=== PATIENT | male | born 1965 | race Caucasian/White ===

== ENCOUNTER → 2017-05-22 | Outpatient (CLI) | payer OTHER ==
[2017-05-22 15:43] LABS: Blood Urea Nitrogen 17 mg/dL (9-20)
== END | disposition home or self-care (01) ==
LOC: LABWHC1 15:15
PROVIDERS: ATTEND Nurse Practitioner Acute Care
DX: Z09 Encounter for follow-up examination after completed treatment for conditions other than malignant neoplasm (principal); Z85.110 Personal history of malignant carcinoid tumor of bronchus and lung
CPT/HCPCS: 36415; 82565; 84520

== ENCOUNTER → 2017-05-23 | Outpatient (CLI) | payer OTHER ==
--- NOTE | 2017-05-23 15:29 | CT ---
EXAMINATION TYPE: CT chest w con DATE OF EXAM: 05/23/2017 COMPARISON: 12/18/2015 HISTORY: History of testicular cancer. Neoplasm of lung. CT DLP: 765 mGycm. Automated Exposure Control for Dose Reduction was Utilized. TECHNIQUE: CT scan of the thorax is performed following with IV Contrast, patient injected with 100 mL of Omnipaque 300. FINDINGS: LUNGS: There is a 2 mm pulmonary nodule, solid in appearance, on series 4 image 46 within the posteri or basilar segment of the right lower lobe. Retrospectively this is stable from the prior exam of 11/27. The lungs are grossly clear, there is no concerning parenchymal mass or nodule identified. There is no pleural effusion or pneumothorax seen. The tracheobronchial tree is patent. MEDIASTINUM: There are no greater than 1 cm hilar or mediastinal lymph nodes. No pericardial effusi on is seen. OTHER: Hepatic parenchyma is diffusely hypoattenuated in comparison to that of the spleen, most commo nly seen in hepatic steatosis. This finding limits evaluation for hepatic masses. No gross evidence o f hepatic mass is seen. No intrahepatic biliary ductal dilatation. No cholelithiasis. Moderate degene rative changes of the thoracic spine are noted. There is a retrospectively stable 2.2 cm lytic sterna l lesion within the sternal body approximately. IMPRESSION: 1. Solitary right lower lobe solid and 2 mm pulmonary nodule retrospectively stable back to 2016. CT follow-up is recommended in 12 months to determine long-term stability. If this is unchanged at that time the nodule can be considered benign. 2. No evidence of intrathoracic adenopathy. 3. Nonspecific stable sternal lytic lesion unchanged from 2016. Continued surveillance is recommended . 4. Hepatic steatosis.
== END | disposition home or self-care (01) ==
LOC: RADCTMAIN 14:12
PROVIDERS: ATTEND Family Medicine
DX: Z08 Encounter for follow-up examination after completed treatment for malignant neoplasm (principal); R91.8 Other nonspecific abnormal finding of lung field; K76.0 Fatty (change of) liver, not elsewhere classified; Z85.110 Personal history of malignant carcinoid tumor of bronchus and lung
CPT/HCPCS: 71260; Q9967

== ENCOUNTER 2017-11-08 12:09 | Emergency (ER) | payer OTHER ==
--- NOTE | 2017-11-08 12:17 | ED ---
ENT HPI - General Stated complaint: FB Lt ear Time Seen by Provider: 11/08/17 12:15 Source: patient, RN notes reviewed Mode of arrival: ambulatory Limitations: no limitations - History of Present Illness Initial comments: This a 52-year-old male presents emergency Department chief complaint of left ear problems. Patient states that he normally has eczema of his ear and some cream in it. He states that he feels that something else may be wrong. He states that he used some chomping or moving his ear is concerned about possible. patient denies any bleeding, fever, chills or any drainage. Patient denies any URI symptoms. - Related Data Previous Rx's Medication Instructions Recorded Cephalexin [Keflex] 500 mg PO Q6HR #40 cap 11/08/17 Mometasone Furoate [Elocon] 1 applic TP BID #45 cream..g. 11/08/17 Allergies Allergy/AdvReac Type Severity Reaction Status Date / Time Penicillins Allergy Rash/Hives Verified 11/08/17 12:18 Review of Systems ROS Statement: Those systems with pertinent positive or pertinent negative responses have been documented in the HPI. ROS Other: All systems not noted in ROS Statement are negative. General Exam General appearance: alert, in no apparent distress Head exam: Present: atraumatic, normocephalic, normal inspection Eye exam: Present: normal appearance, PERRL, EOMI. Absent: scleral icterus, conjunctival injection, periorbital swelling ENT exam: Present: normal oropharynx, mucous membranes moist, TM's normal bilaterally. Absent: normal exam, normal external ear exam (There is an abscess with noted pustule on his left tragus) Neck exam: Present: normal inspection, full ROM. Absent: tenderness, meningismus, lymphadenopathy Respiratory exam: Present: normal lung sounds bilaterally. Absent: respiratory distress, wheezes, rales, rhonchi, stridor Cardiovascular Exam: Present: regular rate, normal rhythm, normal heart sounds. Absent: systolic murmur, diastolic murmur, rubs, gallop, clicks Neurological exam: Present: alert Skin exam: Present: warm, dry Course Vital Signs 11/08/17 12:16 Temperature 98.4 F Pulse Rate 72 Respiratory 18 Rate Blood Pressure 143/89 O2 Sat by Pulse 99 Oximetry Procedures - Incision & Drainage Consent Obtained: verbal consent Site: other (Left ear) Size (cm): 1 Anesthetic Used: lidocaine 1%, without epi Amount (mLs): 1 I&D Cleaning Method: Chloroprep Needle Aspiration Performed?: Yes Irrigation Performed?: No I&D Drainage Obtained: Pus, Blood Culture Obtained?: No Patient Tolerated Procedure: no complications Medical Decision Making - Medical Decision Making 52-year-old male presented for left ear pain. Patient is found to have an abscess on his left ear. Patient had an I&D in the emergency department and some drainage was noted. Patient will follow-up with [facility] and on-call ENT. Patient was started on Keflex. Return parameters were discussed. Disposition Clinical Impression: Abscess of tragus of left ear Disposition: HOME SELF-CARE Condition: Stable Instructions: Abscess (ED) Additional Instructions: Please return to the Emergency Department if symptoms worsen or any other concerns. Prescriptions: Cephalexin [Keflex] 500 mg PO Q6HR #40 cap Mometasone Furoate [Elocon] 1 applic TP BID #45 cream..g. Is patient prescribed a controlled substance at d/c from ED?: No Referrals: Ousmane Lynn DO [Primary Care Provider] - 1-2 days Time of Disposition: 12:37
[2017-11-08 12:18] VITALS: BP 143/89; PULSE 72; RESP 18; TEMP 98.4
[2017-11-08] MEDS ORDERED: LIDOCAINE 1% INJ 10MG/ML (20 ML MDV) SQ ONE (12:23)
== END 2017-11-08 12:40 | disposition home or self-care (01) ==
LOC: EC 12:09
DX: H60.02 Abscess of left external ear (principal); Z88.0 Allergy status to penicillin
CPT/HCPCS: 99282; 69000; J2001

== ENCOUNTER 2017-11-27 15:51 | Emergency (ER) | payer OTHER ==
[2017-11-27 15:59] VITALS: BP 144/77; PULSE 75; RESP 18; TEMP 98
--- NOTE | 2017-11-27 16:23 | ED ---
Skin/Abscess/FB HPI - General Chief complaint: Skin/Abscess/Foreign Body Stated complaint: ALLERGIC REACTION Time Seen by Provider: 11/27/17 16:01 Source: patient, RN notes reviewed, old records reviewed Mode of arrival: ambulatory Limitations: no limitations - History of Present Illness Initial comments: 52 year old male presents with pruritic erythematous rash for one week after taking keflex for upper respiratory infection. PAtient was started on steroids by PCP, as well as claritin. Patient states that despite taking 40 mg of prednisone, he is continuing to have rash and he is tapering down. Denies angie swelling or difficulty breathing. He reports that he had no exposures to plants or other sources for hte rash. - Related Data Previous Rx's Medication Instructions Recorded Cephalexin [Keflex] 500 mg PO Q6HR #40 cap 11/08/17 Mometasone Furoate [Elocon] 1 applic TP BID #45 cream..g. 11/08/17 Triamcinolone 0.1% Cream [Kenalog 1 applic TOPICAL TID #60 g 11/27/17 0.1% Cream] predniSONE 60 mg PO DAILY #5 tab 11/27/17 Allergies Allergy/AdvReac Type Severity Reaction Status Date / Time cephalexin Allergy Rash/Hives Verified 11/27/17 15:59 Penicillins Allergy Rash/Hives Verified 11/27/17 15:59 Review of Systems ROS Statement: Those systems with pertinent positive or pertinent negative responses have been documented in the HPI. ROS Other: All systems not noted in ROS Statement are negative. 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 Limitations: no limitations General appearance: alert, in no apparent distress Head exam: Present: atraumatic, normocephalic, normal inspection Eye exam: Present: normal appearance, PERRL, EOMI. Absent: scleral icterus, conjunctival injection, periorbital swelling ENT exam: Present: normal exam, mucous membranes moist Neck exam: Present: normal inspection. Absent: tenderness, meningismus, lymphadenopathy Respiratory exam: Present: normal lung sounds bilaterally. Absent: respiratory distress, wheezes, rales, rhonchi, stridor Cardiovascular Exam: Present: regular rate, normal rhythm, normal heart sounds. Absent: systolic murmur, diastolic murmur, rubs, gallop, clicks Back exam: Present: normal inspection Neurological exam: Present: alert, oriented X3, CN II-XII intact Psychiatric exam: Present: normal affect, normal mood Skin exam: Present: warm, dry, intact, normal color, rash (Erythematous pruritic , uritcarial rash over forearms, abdomen and back. ) Course Vital Signs 11/27/17 15:56 Temperature 98.0 F Pulse Rate 75 Respiratory 18 Rate Blood Pressure 144/77 O2 Sat by Pulse 99 Oximetry Medical Decision Making - Medical Decision Making 52 year old male presents with drug eruption rash after taking keflex one week ago. At this time he is on 40 mg of prednisone. Discussed increasing steriod, and using steriod cream to help with pruritis. Discussed PCP follow up and given referral for dermatology. Disposition Clinical Impression: Drug eruption Disposition: HOME SELF-CARE Condition: Good Instructions: Acute Rash (ED) Additional Instructions: Patient denies to apply the steroid cream 3 times a day. He can also use increase the steroid dose as prescribed. Continue the other medications as directed. Return to the emergency department if any alarming signs or symptoms occur. Recommended follow-up with PCP as well as dermatology. Prescriptions: predniSONE 60 mg PO DAILY #5 tab Triamcinolone 0.1% Cream [Kenalog 0.1% Cream] 1 applic TOPICAL TID #60 g Is patient prescribed a controlled substance at d/c from ED?: No Referrals: [facility],Clinic [Primary Care Provider] - 1-2 days Carri Waters MD [STAFF PHYSICIAN] - 1-2 days Time of Disposition: 16:23
== END 2017-11-27 16:27 | disposition home or self-care (01) ==
LOC: EC 15:51
DX: L27.0 Generalized skin eruption due to drugs and medicaments taken internally (principal); T36.1X5A Adverse effect of cephalosporins and other beta-lactam antibiotics, initial encounter; Z85.47 Personal history of malignant neoplasm of testis; Z85.118 Personal history of other malignant neoplasm of bronchus and lung; Z88.1 Allergy status to other antibiotic agents; Z88.0 Allergy status to penicillin; Z87.2 Personal history of diseases of the skin and subcutaneous tissue
CPT/HCPCS: 99283

== ENCOUNTER 2018-10-18 15:31 | Emergency (ER) | payer OTHER ==
[2018-10-18 15:42] VITALS: BP 124/79; PULSE 77; RESP 18; TEMP 98
[2018-10-18] MEDS ORDERED: LIDOCAINE 1% INJ 10MG/ML (20 ML MDV) SQ ONE (15:49)
[2018-10-18] MEDS ORDERED: SULFAMETH-TMP DS STARTER PACK 2 TAB BTL PO STA (15:52)
--- NOTE | 2018-10-18 15:55 | ED ---
Skin/Abscess/FB HPI - General Chief complaint: Skin/Abscess/Foreign Body Stated complaint: Skin infection Time Seen by Provider: 10/18/18 15:43 Source: patient, RN notes reviewed, old records reviewed Mode of arrival: ambulatory Limitations: no limitations - History of Present Illness Initial comments: Patient is a 53-year-old male presents or urgency department today for evaluation for the ESR infection over his left shoulder. Patient reports these had history of staph infections in the past. Patient states that he has had no fevers or chills. He reports that for the past 2 days she's had some pus expelled from that site was squeezing it. Patient states he had no other symptoms. - Related Data Previous Rx's Medication Instructions Recorded Cephalexin [Keflex] 500 mg PO Q6HR #40 cap 11/08/17 Mometasone Furoate [Elocon] 1 applic TP BID #45 cream..g. 11/08/17 Triamcinolone 0.1% Cream [Kenalog 1 applic TOPICAL TID #60 g 11/27/17 0.1% Cream] predniSONE 60 mg PO DAILY #5 tab 11/27/17 Sulfamethox-Tmp 800-160Mg [Bactrim 1 tab PO Q12HR #20 tab 10/18/18 DS 800-160 mg] Allergies Allergy/AdvReac Type Severity Reaction Status Date / Time cephalexin Allergy Rash/Hives Verified 10/18/18 15:42 Penicillins Allergy Rash/Hives Verified 10/18/18 15:42 Review of Systems ROS Statement: Those systems with pertinent positive or pertinent negative responses have been documented in the HPI. ROS Other: All systems not noted in ROS Statement are negative. 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 Absent: scleral icterus, conjunctival injection, periorbital swelling ENT exam: Present: normal exam, mucous membranes moist Neck exam: Present: normal inspection. Absent: tenderness, meningismus, lymphadenopathy Respiratory exam: Present: normal lung sounds bilaterally. Absent: respiratory distress, wheezes, rales, rhonchi, stridor Cardiovascular Exam: Present: regular rate, normal rhythm, normal heart sounds. Absent: systolic murmur, diastolic murmur, rubs, gallop, clicks GI/Abdominal exam: Present: soft, normal bowel sounds. Absent: distended, tenderness, guarding, rebound, rigid Extremities exam: Present: normal inspection, full ROM, normal capillary refill, other (Patient has evidence of erythema, and induration measuring 5 cm over the left deltoid. ). Absent: tenderness, pedal edema, joint swelling, calf tenderness Back exam: Present: normal inspection Neurological exam: Present: alert, oriented X3, CN II-XII intact Psychiatric exam: Present: normal affect, normal mood Skin exam: Present: warm, dry, intact, normal color. Absent: rash Course Vital Signs 10/18/18 15:41 Temperature 98 F Pulse Rate 77 Respiratory 18 Rate Blood Pressure 124/79 O2 Sat by Pulse 95 Oximetry Procedures - Incision & Drainage Site: upper extremity (L shoulder) Size (cm): 2 Anesthetic Used: lidocaine 1% Amount (mLs): 5 I&D Cleaning Method: Iodine Sterile Field Used?: Yes Scalpel Used: #11 Needle Aspiration Performed?: Yes I&D Drainage Obtained: Pus, Blood Culture Obtained?: Yes Patient Tolerated Procedure: well, no complications Medical Decision Making - Medical Decision Making 53-year-old has restarted here with left shoulder abscess and concern for staph infection. Patient reports that he opened the area and some pus from the past 2 days. He is surrounding area of induration and cellulitis measuring 5 cm in diameter. Patient was given lidocaine injection, incision and drainage is completed. Small amount purulent fluid was removed. Patient was started on Bactrim. I discussed the Patient and close follow-up with primary care doctor monitor area of redness and swelling. Patient agrees treatment plan will comply. Return parameters were discussed. Disposition Clinical Impression: Cellulitis of left shoulder Disposition: HOME SELF-CARE Condition: Good Instructions (If sedation given, give patient instructions): Abscess Incision and Drainage (ED) Additional Instructions: Patient is advised to take antibiotic as prescribed. Close follow-up with primary care doctor. Take warm compresses over the area of redness and swelling. Return to the emergency department if any alarming signs or symptoms occur. Prescriptions: Sulfamethox-Tmp 800-160Mg [Bactrim DS 800-160 mg] 1 tab PO Q12HR #20 tab Is patient prescribed a controlled substance at d/c from ED?: No Referrals: [facility],Clinic [Primary Care Provider] - 1-2 days Time of Disposition: 15:53
== END 2018-10-18 16:40 | disposition home or self-care (01) ==
LOC: EC 15:31
DX: L03.114 Cellulitis of left upper limb (principal); L02.414 Cutaneous abscess of left upper limb; Z88.0 Allergy status to penicillin; Z88.1 Allergy status to other antibiotic agents
CPT/HCPCS: 87070; 87205; 99284; 10060; J2001; 87077; 87186

== ENCOUNTER 2019-05-17 09:15 | Day surgery (SDC) | payer OTHER ==
[2019-05-14 09:06] VITALS: BMI 29.9
[~2019-05-17 09:15] MED LIST: LACTATED RINGERS 1,000 ML IV SCH; LIDOCAINE 1% 20 ML VIAL (10MG/ML) FOR IV START INTRADERMA PRN
[2019-05-17 09:41] VITALS: TEMP 98.1
--- NOTE | 2019-05-17 10:32 | P.PCN ---
Date of Procedure: 05/17/19 Description of Procedure: BRIEF HISTORY: Patient is a 53-year-old male presenting for outpatient colonoscopy for a history of colon polyps. Patient denies any blood per rectum, abdominal pain, family history of colon cancer. Last colonoscopy 5 years ago significant for colon polyps. PROCEDURE PERFORMED: Colonoscopy. PREOPERATIVE DIAGNOSIS: History of colon polyps, last colonoscopy 5 years ago. ESTIMATED BLOOD LOSS: Minimal. IV sedation per Anesthesia. PROCEDURE: After informed consent was obtained, the patient, was brought into the endoscopy unit. IV sedation was not administered by Anesthesia as the patient requested to perform the procedure without anesthetic but he procedure was performed under continuous monitoring. Digital rectal examination was normal. Initially the Olympus CF-190 flexible video colonoscope was then inserted in the rectum, gradually advanced into the cecum without any difficulty. Careful examination was performed as the scope was gradually being withdrawn. Ileocecal valve and the appendiceal orifice were visualized and appeared normal. Prep was excellent. Mucosa of the cecum, ascending colon, transverse colon, descending colon, sigmoid colon, and rectum appeared normal. Retroflexion was performed in the rectum and no lesions were seen. The patient tolerated the procedure well. IMPRESSION: Normal-appearing colon from rectum to cecum. RECOMMENDATIONS: Findings of this examination were discussed with the patient. Okay to resume diet and medication. Would recommend repeat colonoscopy in 5 years in the setting of history of colon polyps.
[2019-05-17 10:57] VITALS: RESP 16
[2019-05-17 11:15] VITALS: BP 140/80; PULSE 62
== END 2019-05-17 11:10 | disposition home or self-care (01) ==
LOC: ORWHC2ENDO 09:15
PROVIDERS: ATTEND Internal Medicine
DX: Z12.11 Encounter for screening for malignant neoplasm of colon (principal); Z86.010 Personal history of colon polyps; J44.9 Chronic obstructive pulmonary disease, unspecified; Z88.0 Allergy status to penicillin; Z88.1 Allergy status to other antibiotic agents; Z98.890 Other specified postprocedural states; Z90.79 Acquired absence of other genital organ(s); Z85.47 Personal history of malignant neoplasm of testis; Z85.118 Personal history of other malignant neoplasm of bronchus and lung
CPT/HCPCS: 45378

== ENCOUNTER → 2020-08-28 | Outpatient (CLI) | payer OTHER ==
[2020-08-28 15:19] LABS: Basophils # (A) 0.1 k/uL (0-0.2); Basophils % (A) 1 %; Eosinophils % (A) 1 %; HCT 42.6 % (39.0-53.0); HGB 15.1 gm/dL (13.0-17.5); Lymphocytes # (A) 1.1 k/uL (1.0-4.8); Lymphocytes % (A) 24 %; MCHC 35.4 g/dL (31.0-37.0); MCV 90.6 fL (80.0-100.0); Mean Platelet Volume 8.7; Monocytes # (A) 0.6 k/uL (0-1.0); Monocytes % (A) 13 %; Neutrophils # (A) 2.7 k/uL (1.3-7.7); Neutrophils % (A) 61 %; Platelet Count 172 k/uL (150-450); RDW 11.7 % (11.5-15.5); WBC 4.5 k/uL (3.8-10.6)
[2020-08-28 15:26] LABS: African American GFR (CKD) >90 (>60 ml/min/1.73 sqM); Anion Gap 6 mmol/L; Blood Urea Nitrogen 14 mg/dL (9-20); Carbon Dioxide 29 mmol/L (22-30); Chloride 105 mmol/L (98-107); Glucose 87 mg/dL (74-99); Non-African American GFR(CKD) >90 (>60 ml/min/1.73 sqM); Potassium 4.4 mmol/L (3.5-5.1); Sodium 140 mmol/L (137-145)
== END | disposition home or self-care (01) ==
LOC: LABPAT 14:56
PROVIDERS: ATTEND Urology
DX: Z01.812 Encounter for preprocedural laboratory examination (principal); C62.91 Malignant neoplasm of right testis, unspecified whether descended or undescended
CPT/HCPCS: 36415; 80048; 85025

== ENCOUNTER → 2020-09-01 | Day surgery (SDC) | payer OTHER ==
[2020-08-29 15:28] VITALS: BMI 27.0
--- NOTE | 2020-08-31 07:50 | P.HPIHPCON ---
History of Present Illness H&P Date: 08/31/20 This is a 55 yo male with hx of right testicular cancer, he underwent an Inguinal orchiectomy in the past. He is interested in proceeding with testicular implant. Discussed with him the option of doing a testicular implant. Discussed with him the risk which includes but not limited to bleeding, inf ection, implant infection requiring explant, implant migration. Discussed also potential of patient unsatisfaction. Discussed risk of anesthesia with him. He understood all the risk and agreed to proceed with right-sided testicular implant Consent for Procedure: I have explained the operation/procedure to the patient, including the risks, benefits, side effects, alternative therapies (including not receiving the proposed treatment or service), the likelihood of the patient achieving his/her goals, and potential recuperation problems for the procedure/sedation/analgesia, as well as any blood products, if indicated. I also explained to the patient the risks, benefits and side effects of the alternatives, as well as the risks related to not receiving the proposed procedure, care, treatment, or services. - Constitutional Constitutional: Denies chills, Denies fever - Respiratory Respiratory: Denies cough, Denies 7 - Gastrointestinal Gastrointestinal: Denies abdominal pain, Denies diarrhea, Denies nausea, Denies vomiting - Genitourinary (Female) Genitourinary: Denies dysuria, Denies hematuria Past Medical History Past Medical History: Asthma, Cancer, COPD, Skin Disorder Additional Past Medical History / Comment(s): eczema, ca testicle 2004-had surg. & radiation, mets. to lung 2007-had chemo., exercise induced asthma, History of Any Multi-Drug Resistant Organisms: MRSA Date of last positivie culture/infection: 10/18/18 MDRO Source:: LEFT ARM Past Surgical History: Hernia Repair Additional Past Surgical History / Comment(s): right testicle removed, colonoscopies Past Anesthesia/Blood Transfusion Reactions: No Reported Reaction Smoking Status: Never smoker - Past Family History Mother Family Medical History: No Reported History Medications and Allergies Home Medications Medication Instructions Recorded Confirmed Type Acetaminophen Tab [Tylenol] 325 mg PO DIRECTED PRN 08/29/20 08/29/20 History Inhaler(Name Unknown) 1 puff IH DIRECTED PRN 08/29/20 08/29/20 History Allergies Allergy/AdvReac Type Severity Reaction Status Date / Time cephalexin Allergy Rash/Hives Verified 08/29/20 15:20 Penicillins Allergy Rash/Hives Verified 08/29/20 15:20 Surgical - Exam - General no distress, no pain - Eyes PERRL, normal ocular movement - Respiratory normal expansion, normal respiratory effort Assessment and Plan Assessment: OR for right-sided testicular implant
[~2020-09-01] MED LIST changes: +BUPIVACAINE (PF) 0.5% 30 ML VIAL SQ ONE; +DEXAMETHASONE SOD PHOSPHATE 4 MG/ML 1 ML VIAL IV ONE; +GENTAMICIN 120 MG in SODIUM CHLORIDE 0.9% 100 ML IVPB PRN; +HYDROmorphone 0.5 MG/0.5 ML SYRINGE IVP PRN; -LACTATED RINGERS 1,000 ML IV SCH; +LIDOCAINE 1% (10MG/ML) FOR IV START INTRADERMA ONE; -LIDOCAINE 1% 20 ML VIAL (10MG/ML) FOR IV START INTRADERMA PRN; +LIDOCAINE 1% INJ 10MG/ML (20 ML MDV) ONE; +MIDAZOLAM 2 MG/2 ML VIAL IV PRN; +MIDAZOLAM 2 MG/2 ML VIAL ONE; +ONDANSETRON 4 MG/2 ML VIAL IVP ONE; +PROPOFOL 10 MG/ML 20 ML VIAL IV ONE; +SCOPOLAMINE 1.5MG/72HR PATCH TRANSDERM ONE; +VANCOMYCIN 1,000 MG in SODIUM CHLORIDE 0.9% 250 ML IVPB PRN; +fentaNYL (PF) 50 MCG/ML 2 ML AMP ONE
[2020-09-01] MEDS: LACTATED RINGERS 1,000 ML IV SCH ×2 (10:12→12:28)
[2020-09-01 11:38] VITALS: TEMP 97.8
--- NOTE | 2020-09-01 11:42 | P.OP ---
Date of Procedure: 09/01/20 Preoperative Diagnosis: Right sided testicular cancer Postoperative Diagnosis: Same Procedure(s) Performed: Testicular implant on the right Implants: Coloplast saline testicular implant in the right scrotum Anesthesia: ANNIEA Surgeon: Frankie Morillo Estimated Blood Loss (ml): 5 Pathology: none sent Condition: stable Disposition: PACU Indications for Procedure: This is a 55 yo male with hx of right testicular cancer, he underwent an Inguinal orchiectomy in the past. He is interested in proceeding with testicular implant. Discussed with him the option of doing a testicular implant. Discussed with him the risk which includes but not limited to bleeding, infection, implant infection requiring explant, implant migration. Discussed also potential of patient unsatisfaction. Discussed risk of anesthesia with him. He understood all the risk and agreed to proceed with right-sided testicular implant Description of Procedure: Patient was brought to the operating room, general anesthesia was induced. He was prepped and draped in sterile fashion placed in a supine position. An incision was made along the right upper hemiscrotum. Incision was deepened down using ultra cautery. Next a subdartos pouch, was developed using finger dissection. 3 mL of 0.5% Marcaine was injected. Next the saline implant was prepared, was filled with approximately 20 mL's of injectable saline. Next the implant was placed into the right hemiscrotum,. The subcutaneous tissue was closed using 3-0 Vicryl, the skin was closed using 4-0 Monocryl. Skin glue was applied to the incision. The patient thought the procedure well was taken to PACU in stable condition
[2020-09-01 12:10] VITALS: RESP 17
[2020-09-01 12:24] VITALS: BP 133/77; PULSE 75
== END ==
LOC: OR 09:44
PROVIDERS: ATTEND Urology
DX: Z90.79 Acquired absence of other genital organ(s) (principal); J44.9 Chronic obstructive pulmonary disease, unspecified; J45.990 Exercise induced bronchospasm; L30.9 Dermatitis, unspecified; Z85.47 Personal history of malignant neoplasm of testis; Z85.118 Personal history of other malignant neoplasm of bronchus and lung; Z92.3 Personal history of irradiation; Z92.21 Personal history of antineoplastic chemotherapy; Z86.14 Personal history of Methicillin resistant Staphylococcus aureus infection; Z98.890 Other specified postprocedural states; Z88.1 Allergy status to other antibiotic agents; Z88.0 Allergy status to penicillin
CPT/HCPCS: 54660; J2250; J1100; J2405; J2001; J3010; J1580; J2704

== ENCOUNTER → 2021-08-22 | Outpatient (CLI) | payer OTHER ==
--- NOTE | 2021-08-22 22:48 | CT ---
EXAMINATION TYPE: CT Chest Abd Pelvis w con DATE OF EXAM: 08/22/2021 COMPARISON: Multiple CTs of the chest, abdomen, pelvis most recently dated 07/17/2018 HISTORY: Testicular CA CT DLP: 1528.30 mGycm. Automated Exposure Control for Dose Reduction was Utilized. TECHNIQUE: Multiple contiguous axial CT images of the chest, abdomen, and pelvis were obtained from t he lung apices through the pubic symphysis with IV Contrast, patient injected with 100 mL of Isovue 3 00. 2-D sagittal and coronal reformatted images were obtained. FINDINGS: Chest: Cardiac size appears within normal limits. No pericardial effusion. Thoracic aorta and main pulmonary arteries are of normal caliber. No mediastinal, hilar, or axillary lymphadenopathy. Central airways are normal course and caliber. Lungs appear clear. No pleural effusion or pneumothora x. No suspicious pulmonary nodules. Abdomen/pelvis: Liver contains a subcentimeter hypoattenuation within the posterior aspect of the right hepatic lobe which is unchanged from prior and too small to characterize but statistically benign cyst. Spleen, pa ncreas, and bilateral adrenal glands have an unremarkable enhanced appearance. Gallbladder is present. No definite intrahepatic or extrahepatic biliary ductal dilatation. Kidneys are symmetric in size without hydronephrosis. No renal or ureteral calculi. Urinary bladder a ppears unremarkable. Severely enlarged prostate gland. Right testicular prosthesis is visualized. No free fluid. Visualized bowel is of normal caliber without evidence of obstruction. No significant mesenteric infl ammation. No free air. Abdominal aorta is of normal caliber. No intra-abdominal or retroperitoneal lymphadenopathy. Subcutan eous soft tissues appear unremarkable. Musculoskeletal: Visualized osseous structures appear intact. Moderate multilevel degenerative changes of the thoracic spine with showing syndesmophytes anteriorly consistent with diffuse idiopathic skeletal hyperostosi s. Osteolytic or osteoblastic lesions identified. IMPRESSION: No evidence of disease recurrence.
== END | disposition home or self-care (01) ==
LOC: RADCTMAIN 07:25
PROVIDERS: ATTEND Urology
DX: C62.90 Malignant neoplasm of unspecified testis, unspecified whether descended or undescended (principal)
CPT/HCPCS: 71260; 74177; Q9967

== ENCOUNTER → 2021-10-01 | Outpatient (CLI) | payer OTHER ==
--- NOTE | 2021-10-02 04:36 | MR ---
EXAMINATION TYPE: MR cspine/tspine/lspine wo con DATE OF EXAM: 10/01/2021 COMPARISON: HISTORY: Back pain TECHNIQUE: Multiplanar, multisequence imaging of the lumbar thoracic and cervical spine is performed without IV contrast. Cervical spine. The cervical vertebra have normal alignment. Disc spaces are fairly normal. No compression fracture. No disc herniation. Cervical spinal cord has normal signal pattern. No edema. Brainstem is intact. No spinal stenosis. Posterior elements are intact. There is no cervical paraspinal mass. IMPRESSION: Negative MRI scan of the cervical spine. Thoracic spine. Thoracic vertebra have normal alignment. Disc spaces are fairly normal. No thoracic spinal stenosis. Thoracic spinal cord has normal signal pattern. No edema. There is no evidence of thoracic paraspina l mass. The posterior elements are intact. There is some anterior osteophyte formation in the lower t horacic spine. There is slight wedging of T8 and T9 vertebra 15% that appears old. No edema. IMPRESSION: There are old mild compression fractures in the lower thoracic spine. No acute fracture seen. No thor acic spinal stenosis or disc herniation. Lumbar spine. The lumbar vertebrae have normal alignment. Disc spaces are fairly normal. No compression fracture. P osterior elements are intact. Facet joints are normal. There is developmentally large spinal canal an d no spinal stenosis. There is normal-appearing sacroiliac joints. There is no paraspinal mass. Lumba r nerve roots appear normal. The lumbar neural foramina appear widely patent. IMPRESSION: Negative MRI scan of the lumbar spine.
== END | disposition home or self-care (01) ==
LOC: RADMRIMAIN 06:57
PROVIDERS: ATTEND Orthopaedic Surgery
DX: M54.9 Dorsalgia, unspecified (principal)
CPT/HCPCS: 72141; 72146; 72148

== ENCOUNTER 2022-09-11 14:45 | Emergency (ER) | payer OTHER ==
--- NOTE | 2022-09-11 15:23 | ED ---
General Adult HPI - General Source: patient, RN notes reviewed Mode of arrival: ambulatory Limitations: no limitations <JaswinderOusmane - Last Filed: 09/11/22 15:22> - General Source: patient, RN notes reviewed Mode of arrival: ambulatory Limitations: no limitations <Kenyatta Merlos - Last Filed: 09/11/22 19:16> - General Stated complaint: vision issues/dizziness Time Seen by Provider: 09/11/22 15:22 - History of Present Illness Initial comments: 57-year-old male presents emergency Department with chief complaint of visual disturbance. Patient states he was driving in which he felt like his eyes were dilating states that everything became unfocused at that time. He states that he had a dust puller. Patient symptoms lasted 10-15 seconds. He is asymptomatic this time denies any significant headache he states he has some dull acute pain in the frontal aspect. Patient denies any facial asymmetry, confusion, chest pain palpitation no focal weakness including upper and lower extremities. He states he feels like his normal baseline at this time. He states that his physician who did his foot surgery was concerned about blood clots and this was a concern for patient. (Ousmane San) 57-year-old male presents to the emergency department with chief complaint of feeling like "my eyes get really big then I was unable to focus." He states that he was driving his car at the time and felt like his eyes were dilating. He states that he looked in the rear view mirror and did not notice any dilation of his eyes. He states that he had a pulse car over. The symptoms lasted about 10-15 seconds and he had complete resolution after that. He states that he otherwise felt normal at that time. He states that once the symptoms resolved he did not have any other visual changes. Denies weakness, facial droop, confusion, lower extremity edema, chest pain. Denies floaters in the visual field. Denies eye pain, difficulty with eye movements. He states his vision is at baseline at the time of initial evaluation. (Kenyatta Merlos) - Related Data Home Medications Medication Instructions Recorded Confirmed Acetaminophen Tab [Tylenol] 325 mg PO DIRECTED PRN 08/29/20 09/01/20 Inhaler(Name Unknown) 1 puff IH DIRECTED PRN 08/29/20 09/01/20 Previous Rx's Medication Instructions Recorded Ibuprofen 600 mg PO Q6H PRN #30 tab 09/01/20 Sulfamethox-Tmp 800-160Mg [Bactrim 1 tab PO Q12HR #10 tab 09/01/20 DS 800-160 mg] traMADol HCl [Ultram] 50 mg PO Q4-6H PRN #6 tab 09/01/20 Allergies Allergy/AdvReac Type Severity Reaction Status Date / Time cephalexin Allergy Rash/Hives Verified 09/11/22 15:54 Penicillins Allergy Rash/Hives Verified 09/11/22 15:54 Review of Systems ROS Other: All systems not noted in ROS Statement are negative. <Ousmane San - Last Filed: 09/11/22 15:22> ROS Other: All systems not noted in ROS Statement are negative. <Kenyatta Merlos - Last Filed: 09/11/22 19:16> ROS Statement: Those systems with pertinent positive or pertinent negative responses have been documented in the HPI. 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 & radiation, mets. to lung 2007-had chemo., recent loose stools occasionally, exercise induced asthma, hx. colon polyps History of Any Multi-Drug Resistant Organisms: MRSA Date of last positivie culture/infection: 10/18/18 MDRO Source:: ARM Past Surgical History: Hernia Repair Additional Past Surgical History / Comment(s): right testicle removed, colonoscopies Past Anesthesia/Blood Transfusion Reactions: No Reported Reaction Smoking Status: Never smoker - Past Family History Mother Family Medical History: No Reported History <Ousmane San - Last Filed: 09/11/22 15:22> General Exam Limitations: no limitations General appearance: alert, in no apparent distress Head exam: Present: atraumatic, normocephalic, normal inspection Eye exam: Present: normal appearance, PERRL, EOMI. Absent: scleral icterus, conjunctival injection, periorbital swelling <Ousmane San - Last Filed: 09/11/22 15:22> General appearance: alert, in no apparent distress Head exam: Present: atraumatic, normocephalic, normal inspection Eye exam: Present: normal appearance, PERRL, EOMI. Absent: scleral icterus, conjunctival injection, periorbital swelling ENT exam: Present: normal exam, mucous membranes moist Neck exam: Present: normal inspection. Absent: tenderness, meningismus, lymphadenopathy Respiratory exam: Present: normal lung sounds bilaterally. Absent: respiratory distress, wheezes, rales, rhonchi, stridor Cardiovascular Exam: Present: regular rate, normal rhythm, normal heart sounds. Absent: systolic murmur, diastolic murmur, rubs, gallop, clicks Extremities exam: Present: normal inspection, full ROM, normal capillary refill. Absent: tenderness, pedal edema, joint swelling, calf tenderness Back exam: Present: normal inspection Neurological exam: Present: alert, oriented X3, CN II-XII intact Psychiatric exam: Present: normal affect, normal mood Skin exam: Present: warm, dry, intact, normal color. Absent: rash <Kenyatta Merlos - Last Filed: 09/11/22 19:16> - General Exam Comments Initial Comments: Visual Physical Exam Vital signs reviewed General: Well-appearing, nontoxic, no acute distress. Head: Normocephalic, atraumatic Eyes: PERRLA, EOMI ENT: Airway patent Chest: Nonlabored breathing Skin: No visual rash, normal skin tone Neuro: Alert and oriented 3 Musculoskeletal: No gross abnormalities (Ousmane San) Course Vital Signs 09/11/22 09/11/22 15:51 18:38 Temperature 98.0 F 98.1 F Pulse Rate 70 58 L Respiratory 20 16 Rate Blood Pressure 137/82 142/82 O2 Sat by Pulse 96 98 Oximetry Medical Decision Making <Kenyatta Merlos - Last Filed: 09/11/22 19:16> - Medical Decision Making Was pt. sent in by a medical professional or institution (, PA, MANAGER PAYMENT, urgent care, hospital, or prison...) When possible be specific @ -No Did you speak to anyone other than the patient for history (EMS, parent, family, police, friend...)? What history was obtained from this source @ -No Did you review nursing and triage notes (agree or disagree)? Why? @ -I reviewed and agree with nursing and triage notes Were old charts reviewed (outside hosp., previous admission, EMS record, old EKG, old radiological studies, urgent care reports/EKG's, prison records)? Report findings @ -No old charts were reviewed Differential Diagnosis (chest pain, altered mental status, abdominal pain women, abdominal pain men, vaginal bleeding, weakness, fever, dyspnea, syncope, headache, dizziness, GI bleed, back pain, seizure, CVA, palpatations, mental health, musculoskeletal)? @ -Conjunctivitis, iritis, acute angle-closure glaucoma, retinal detachment, TIA, CVA, this list is not all-inclusive EKG interpreted by me (3pts min.). @ -None X-rays interpreted by me (1pt min.). @ -None done CT interpreted by me (1pt min.). @ -CT brain was performed which showed no acute intracranial process U/S interpreted by me (1pt. min.). @ -None done What testing was considered but not performed or refused? (CT, X-rays, U/S, labs)? Why? @ -None What meds were considered but not given or refused? Why? @ -None Did you discuss the management of the patient with other professionals (professionals i.e. , PA, MANAGER PAYMENT, lab, RT, psych nurse, socially responsible investment adviser, studio coordinator, teacher, homicide squad commanding officer, family caseworker)? Give summary @ -No Was smoking cessation discussed for >3mins.? @ -No Was critical care preformed (if so, how long)? @ -No Were there social determinants of health that impacted care today? How? (Homelessness, low income, unemployed, alcoholism, drug addiction, transportation, low edu. Level, literacy, decrease access to med. care, nursing home, rehab)? @ -No Was there de-escalation of care discussed even if they declined (Discuss DNR or withdrawal of care, Hospice)? DNR status @ -No What co-morbidities impacted this encounter? (DM, HTN, Smoking, COPD, CAD, Cancer, CVA, ARF, Chemo, Hep., AIDS, mental health diagnosis, sleep apnea, morbid obesity)? @ -None Was patient admitted / discharged? Hospital course, mention meds given and route, prescriptions, significant lab abnormalities, going to OR and other pertinent info. @ -Discharged. Patient presented to emergency department with chief complaint of unable to focus his vision in bilateral eyes for 10-15 seconds. He states he has never had this before and denies any other symptoms at this time. He states that the problems that he is having was with both eyes. On examination, there is no erythema to the eyes, no pain with eye movements, normal pressure in bilateral eyes. Pupils are equal round reactive to light, EOMI. A CT of the brain was performed which showed no acute intracranial process. Pressures of the eyes were obtained which were within normal limits with the right eye pressure being 19 and the left eye pressure being 18. He states that his vision is at baseline now and is otherwise not having any symptoms. Patient given outpatient follow-up with ophthalmology and advised to follow-up with his primary care physician. Patient discharged in stable condition. Jules discussed with my attending, Dr. Lal. Undiagnosed new problem with uncertain prognosis? @ -No Drug Therapy requiring intensive monitoring for toxicity (Heparin, Nitro, Insulin, Cardizem)? @ -No Were any procedures done? @ -No Diagnosis/symptom? @ -Bilateral transient vision disturbance Acute, or Chronic, or Acute on Chronic? @ -Acute Uncomplicated (without systemic symptoms) or Complicated (systemic symptoms)? @ -uncomplicated Side effects of treatment? @ -No Exacerbation, Progression, or Severe Exacerbation? @ -No Poses a threat to life or bodily function? How? (Chest pain, [place], [place], pneumonia, PE, COPD, DKA, ARF, appy, cholecystitis, CVA, Diverticulitis, Homicidal, Suicidal, threat to staff... and all critical care pts) @ -No (Kenyatta Merlos) Disposition <Ousmane San - Last Filed: 09/11/22 15:22> Is patient prescribed a controlled substance at d/c from ED?: No Time of Disposition: 18:46 <Kenyatta Merlos - Last Filed: 09/11/22 19:16> Clinical Impression: Transient vision disturbance of both eyes Disposition: HOME SELF-CARE Condition: Stable Instructions (If sedation given, give patient instructions): Blurred Vision (ED) Additional Instructions: Please return to the Emergency Department if symptoms worsen or any other concerns. Referrals: [facility],Clinic [Primary Care Provider] - 1-2 days Kalie Phillips MD [STAFF PHYSICIAN] - 1-2 days
--- NOTE | 2022-09-11 15:58 | CT ---
EXAMINATION TYPE: CT brain wo con CT DLP: 1202.4 mGycm, Automated exposure control for dose reduction was used. DATE OF EXAM: 09/11/2022 3:54 PM COMPARISON: None. CLINICAL INDICATION:Male, 57 years old with history of Visual disturbance, Visual disturbance TECHNIQUE: Brain: Multiple axial CT images of the brain were obtained without IV contrast. Coronal and sagittal reformats reviewed. FINDINGS: Brain: Extra-axial spaces: No abnormal extra-axial fluid collections. Ventricular system: Within normal limits Cerebral parenchyma: No acute intraparenchymal hemorrhage or mass effect. The perez-white junction is well differentiated. Cerebellum: Unremarkable. Mass effect: No evidence of midline shift. Intracranial vasculature: unremarkable Soft tissues: Normal. Calvarium/osseous structures: No depressed skull fracture. Paranasal sinuses and mastoid air cells: Clear Visualized orbits: Orbital contents are intact. IMPRESSION: No acute intracranial process.
[2022-09-11 18:39] VITALS: BP 142/82; PULSE 58; RESP 16; TEMP 98.1
== END 2022-09-11 19:05 | disposition home or self-care (01) ==
LOC: EC 14:45
DX: H53.123 Transient visual loss, bilateral (principal); J44.9 Chronic obstructive pulmonary disease, unspecified; Z88.0 Allergy status to penicillin; Z88.6 Allergy status to analgesic agent
CPT/HCPCS: 70450; 99284

== ENCOUNTER 2024-06-25 07:50 | Day surgery (SDC) | payer OTHER ==
[2024-06-23 16:28] VITALS: BMI 30.1
[2024-06-25] MEDS: IV FLUID CONTINUATION 1,000 ML IV ONE (08:06)
[2024-06-25 08:07] VITALS: TEMP 97.7
[2024-06-25] MEDS: LACTATED RINGERS 1,000 ML IV SCH (08:17)
[2024-06-25] MEDS ORDERED: LIDOCAINE 1% INJ 10MG/ML (20 ML MDV) ONE (09:06)
[2024-06-25] MEDS ORDERED: PROPOFOL 10 MG/ML 20 ML VIAL IV ONE (09:06)
--- NOTE | 2024-06-25 09:31 | P.PCN ---
Date of Procedure: 06/25/24 Procedure(s) Performed: Brief history: Patient is a pleasant 58-year-old white male scheduled for an elective upper endoscopy as well as colonoscopy as a part of evaluation of GERD/intermittent dysphagia to solids and screening for prior history of colon polyps Procedure performed: Esophagogastroduodenoscopy with biopsy Colonoscopy with snare polypectomy Preoperative diagnosis: GERD/Intermittent dysphagia to solids Screening for prior history of colon polyps Anesthesia: MAC Procedure: After informed consent was obtained from the patient was brought into the endoscopy unit and IV sedation was administered by anesthesia under continuous monitoring. Initially upper endoscopy was done. The Olympus GF 160 video endoscope was inserted inserted into the mouth and esophagus intubated without any difficulty and was gradually advanced into the stomach and duodenum and carefully examined. The bulb and second part of the duodenum appeared normal. The scope was then withdrawn into the stomach adequately insufflated with air and upon careful examination the antrum and body, cardia and fundus appeared normal. Mild gastric polyps noted in the gastric body which were biopsied. The scope was then withdrawn into the esophagus. Small hiatal hernia noted. There is a widely patent distal esophageal Schatzki's ring identified. The GE junction was located at 40 cm to the incisors. It appeared regular with no erythema erosions or ulcerations. Rest of the esophagus appeared normal. Patient tolerated the procedure well. At this time the patient continued to remain sedation. Initial digital rectal examination was normal. Olympus CF 160 video colonoscope was then inserted into the rectum and gradually advanced to the cecum without any difficulty. Careful examination was performed as the scope was gradually being withdrawn. The prep was excellent. The cecum, ascending colon, transverse colon, normal. The descending colon there was a 5 mm sessile polyp removed by cold snare polypectomy. In the sigmoid colon there was another 4 mm polyp that was removed by cold snare polypectomy. Rest of the descending colon, sigmoid colon and rectum appeared normal. Retroflexion was performed in the rectum and no lesions were noted. Patient tolerated the procedure well. Impression: 1. Upper endoscopy revealed small hiatal hernia, widely patent distal esophageal Schatzki's ring and small gastric polyps 2. Colonoscopy revealed 5 mm descending colon polyp and a 4 mm sigmoid colon p olyp status post cold snare polypectomy. Recommendations: Findings of this examination were discussed with the patient as well as his family. He was advised to follow-up with the biopsy results. If the biopsy reveals adenoma he can have repeat colonoscopy in 5 years. Continue with omeprazole 20 mg daily and follow antireflux measures.
[2024-06-25 09:39] VITALS: RESP 16
[2024-06-25 09:58] VITALS: BP 127/79; PULSE 69
== END 2024-06-25 10:22 ==
LOC: ORWHC2ENDO 07:50
PROVIDERS: ATTEND Internal Medicine Gastroenterology
DX: Z12.11 Encounter for screening for malignant neoplasm of colon (principal); K29.50 Unspecified chronic gastritis without bleeding; K22.2 Esophageal obstruction; K31.7 Polyp of stomach and duodenum; K44.9 Diaphragmatic hernia without obstruction or gangrene; D12.4 Benign neoplasm of descending colon; K21.9 Gastro-esophageal reflux disease without esophagitis; J44.9 Chronic obstructive pulmonary disease, unspecified; Z85.47 Personal history of malignant neoplasm of testis; Z86.0100 Personal history of colon polyps, unspecified; Z98.890 Other specified postprocedural states; Z79.899 Other long term (current) drug therapy
CPT/HCPCS: 88305; 45385; 43239; J2003; J2704